=== PATIENT | female | born 1945 | race Hispanic/Latino ===

== ENCOUNTER 2022-07-18 08:16 | Outpatient (CLI) | payer MEDICARE, OTHER | END 2022-07-18 08:17 | disposition home or self-care (01) | LOC: CSHWCC 08:16 | PROVIDERS: ATTEND Nurse Practitioner Family | DX: R60.0 Localized edema (principal) | CPT/HCPCS: 82962; 97139; G0463; 36416; 99204 ==

== ENCOUNTER 2022-07-25 10:03 | Outpatient (CLI) | payer MEDICARE, OTHER | END 2022-07-25 10:04 | disposition home or self-care (01) | LOC: CSHWCC 10:03 | PROVIDERS: ATTEND Nurse Practitioner Family | DX: R60.0 Localized edema (principal) | CPT/HCPCS: 29581 ==